=== PATIENT | female | born 1970 | race Caucasian/White ===

== ENCOUNTER 2018-01-30 04:26 | Emergency (ER) | payer OTHER ==
[2018-01-30 04:33] VITALS: RESP 18
[2018-01-30] MEDS ORDERED: ONDANSETRON 4 MG/2 ML VIAL IVP STA (04:45)
[2018-01-30] MEDS ORDERED: PANTOPRAZOLE 40 MG/10 ML VIAL IVP STA (04:45)
[2018-01-30] MEDS ORDERED: RX INFO: IV CONTRAST WAS GIVEN 1 EACH MISC MISCELLANE PRN (04:45)
[2018-01-30] MEDS ORDERED: MORPHINE SULFATE 4 MG/ML SYRINGE IV STA (04:45)
[2018-01-30] MEDS ORDERED: MORPHINE SULFATE 4MG/4ML SYRG IV STA (04:45)
[2018-01-30] MEDS ORDERED: SODIUM CHLORIDE 0.9% 1,000 ML IV STA ×3 (04:45→06:48)
[2018-01-30] MEDS ORDERED: MORPHINE SULFATE 4MG/4ML SYRG ONE (04:50)
[2018-01-30] MEDS ORDERED: MORPHINE SULFATE 4MG/4ML SYRG IVP STA (04:56)
--- NOTE | 2018-01-30 04:59 | ED ---
General Adult HPI - General Chief complaint: Abdominal Pain Stated complaint: Side Pain, Nausea Time Seen by Provider: 01/30/18 04:29 Source: patient, RN notes reviewed, old records reviewed Mode of arrival: ambulatory Limitations: no limitations - History of Present Illness Initial comments: This is a 39-year-old female the ER for evaluation of bowel pain, severe right- sided bowel pain. Patient awoke with symptoms prior to arrival. No history of similar symptoms. Patient has no significant medical history. Does not smoke or drink. No prior surgical history. Patient has severe right-sided pain right anterior abdomen and right flank and into the right back radiating down right flank. Patient states there is some blood in the urine no nausea vomiting no diarrhea. No recent fevers. No travel history or sick contacts. No modifying factors for pain - Related Data Home Medications Medication Instructions Recorded Confirmed HYDROcodone/APAP 7.5-325MG [[place] 1 tab PO DAILY PRN 01/30/18 01/30/18 7.5-325] Sertraline [Zoloft] 100 mg PO DAILY 01/30/18 01/30/18 hydrOXYzine PAMOATE [Vistaril] 25 mg PO DAILY PRN 01/30/18 01/30/18 Allergies Allergy/AdvReac Type Severity Reaction Status Date / Time No Known Allergies Allergy Verified 01/30/18 04:33 Review of Systems ROS Statement: Those systems with pertinent positive or pertinent negative responses have been documented in the HPI. ROS Other: All systems not noted in ROS Statement are negative. Past Medical History Past Medical History: No Reported History Additional Past Medical History / Comment(s): chronic back pain, neck pain. History of Any Multi-Drug Resistant Organisms: None Reported Past Surgical History: No Surgical Hx Reported Past Psychological History: Anxiety, Depression Smoking Status: Current every day smoker Past Alcohol Use History: None Reported Past Drug Use History: None Reported General Exam Limitations: no limitations General appearance: alert, in no apparent distress Head exam: Present: atraumatic, normocephalic, normal inspection Eye exam: Present: normal appearance, PERRL, EOMI. Absent: scleral icterus, conjunctival injection, periorbital swelling ENT exam: Present: normal exam, mucous membranes moist Neck exam: Present: normal inspection. Absent: tenderness, meningismus, lymphadenopathy Respiratory exam: Present: normal lung sounds bilaterally. Absent: respiratory distress, wheezes, rales, rhonchi, stridor Cardiovascular Exam: Present: regular rate, normal rhythm, normal heart sounds. Absent: systolic murmur, diastolic murmur, rubs, gallop, clicks GI/Abdominal exam: Present: soft, normal bowel sounds. Absent: distended, tenderness, guarding, rebound, rigid Extremities exam: Present: normal inspection, full ROM, normal capillary refill. Absent: tenderness, pedal edema, joint swelling, calf tenderness Back exam: Present: normal inspection Neurological exam: Present: alert, oriented X3, CN II-XII intact Psychiatric exam: Present: normal affect, normal mood Skin exam: Present: warm, dry, intact, normal color. Absent: rash Course Vital Signs 01/30/18 01/30/18 04:30 06:07 Temperature 98.6 F Pulse Rate 55 L 69 Respiratory 18 18 Rate Blood Pressure 127/74 131/83 O2 Sat by Pulse 96 98 Oximetry EKG Findings - EKG Comments: EKG Findings:: EKG shows normal sinus rhythm rate of 65, [place] 128, QRS 88, QTC 443 Medical Decision Making - Medical Decision Making 39 female the ER with severe right-sided flank pain. Positive kidney stone. No abdominal tenderness. Patient given pain control here feeling well, can be discharged home - Lab Data Result diagrams: 01/30/18 04:43 01/30/18 04:43 Lab Results 01/30/18 01/30/18 01/30/18 Range/Units 04:43 04:43 04:43 WBC 12.4 H (3.8-10.6) k/uL RBC 4.39 (3.80-5.40) m/uL Hgb 12.9 (11.4-16.0) gm/dL Hct 38.4 (34.0-46.0) % MCV 87.5 (80.0-100.0) fL MCH 29.3 (25.0-35.0) pg MCHC 33.5 (31.0-37.0) g/dL RDW 13.7 (11.5-15.5) % Plt Count 384 (150-450) k/uL Neutrophils % 65 % Lymphocytes % 25 % Monocytes % 6 % Eosinophils % 2 % Basophils % 0 % Neutrophils # 8.1 H (1.3-7.7) k/uL Lymphocytes # 3.2 (1.0-4.8) k/uL Monocytes # 0.7 (0-1.0) k/uL Eosinophils # 0.2 (0-0.7) k/uL Basophils # 0.0 (0-0.2) k/uL Sodium 141 (137-145) mmol/L Potassium 4.1 (3.5-5.1) mmol/L Chloride 102 (98-107) mmol/L Carbon Dioxide 29 (22-30) mmol/L Anion Gap 10 mmol/L BUN 15 (7-17) mg/dL Creatinine 0.70 (0.52-1.04) mg/dL Est GFR (CKD-EPI)AfAm >90 (>60 ml/min/1.73 sqM) Est GFR (CKD-EPI)NonAf >90 (>60 ml/min/1.73 sqM) Glucose 137 H (74-99) mg/dL Plasma Lactic Acid Hero (0.7-2.0) mmol/L Calcium 8.9 (8.4-10.2) mg/dL Total Bilirubin 0.2 (0.2-1.3) mg/dL AST 18 (14-36) U/L ALT 20 (9-52) U/L Alkaline Phosphatase 62 (38-126) U/L Total Creatine Kinase 32 (30-135) U/L CK-MB (CK-2) 0.3 (0.0-2.4) ng/mL CK-MB (CK-2) Rel Index 0.9 Troponin I <0.012 (0.000-0.034) ng/mL Total Protein 6.4 (6.3-8.2) g/dL Albumin 3.5 (3.5-5.0) g/dL Amylase 68 (30-110) U/L Lipase 92 (23-300) U/L Urine Color Urine Appearance (Clear) Urine pH (5.0-8.0) Ur Specific [place] (1.001-1.035) Urine Protein (Negative) Urine Glucose (UA) (Negative) Urine Ketones (Negative) Urine Blood (Negative) Urine Nitrite (Negative) Urine Bilirubin (Negative) Urine Urobilinogen (<2.0) mg/dL Ur Leukocyte Esterase (Negative) Urine RBC (0-5) /hpf Urine WBC (0-5) /hpf Ur Squamous Epith Cells (0-4) /hpf Urine Bacteria (None) /hpf Urine Mucus (None) /hpf 01/30/18 01/30/18 Range/Units 04:43 05:20 WBC (3.8-10.6) k/uL RBC (3.80-5.40) m/uL Hgb (11.4-16.0) gm/dL Hct (34.0-46.0) % MCV (80.0-100.0) fL MCH (25.0-35.0) pg MCHC (31.0-37.0) g/dL RDW (11.5-15.5) % Plt Count (150-450) k/uL Neutrophils % % Lymphocytes % % Monocytes % % Eosinophils % % Basophils % % Neutrophils # (1.3-7.7) k/uL Lymphocytes # (1.0-4.8) k/uL Monocytes # (0-1.0) k/uL Eosinophils # (0-0.7) k/uL Basophils # (0-0.2) k/uL Sodium (137-145) mmol/L Potassium (3.5-5.1) mmol/L Chloride (98-107) mmol/L Carbon Dioxide (22-30) mmol/L Anion Gap mmol/L BUN (7-17) mg/dL Creatinine (0.52-1.04) mg/dL Est GFR (CKD-EPI)AfAm (>60 ml/min/1.73 sqM) Est GFR (CKD-EPI)NonAf (>60 ml/min/1.73 sqM) Glucose (74-99) mg/dL Plasma Lactic Acid Hero 1.4 (0.7-2.0) mmol/L Calcium (8.4-10.2) mg/dL Total Bilirubin (0.2-1.3) mg/dL AST (14-36) U/L ALT (9-52) U/L Alkaline Phosphatase (38-126) U/L Total Creatine Kinase (30-135) U/L CK-MB (CK-2) (0.0-2.4) ng/mL CK-MB (CK-2) Rel Index Troponin I (0.000-0.034) ng/mL Total Protein (6.3-8.2) g/dL Albumin (3.5-5.0) g/dL Amylase (30-110) U/L Lipase (23-300) U/L Urine Color Yellow Urine Appearance Cloudy H (Clear) Urine pH 6.0 (5.0-8.0) Ur Specific [place] 1.013 (1.001-1.035) Urine Protein Trace H (Negative) Urine Glucose (UA) Negative (Negative) Urine Ketones Negative (Negative) Urine Blood Large H (Negative) Urine Nitrite Negative (Negative) Urine Bilirubin Negative (Negative) Urine Urobilinogen <2.0 (<2.0) mg/dL Ur Leukocyte Esterase Negative (Negative) Urine RBC >182 H (0-5) /hpf Urine WBC 3 (0-5) /hpf Ur Squamous Epith Cells 18 H (0-4) /hpf Urine Bacteria Rare H (None) /hpf Urine Mucus Few H (None) /hpf - Radiology Data Radiology results: report reviewed (CT abd pelvis positive for kidney stone), image reviewed Disposition Clinical Impression: Right kidney stone, Abdominal pain Disposition: HOME SELF-CARE Condition: Good Instructions: Kidney Stones (ED) Referrals: Benito Alexandre MD [Primary Care Provider] - 1-2 days
[2018-01-30 05:08] LABS: Basophils % (A) 0 %; Eosinophils # (A) 0.2 k/uL (0-0.7); Eosinophils % (A) 2 %; HCT 38.4 % (34.0-46.0); HGB 12.9 gm/dL (11.4-16.0); Lymphocytes # (A) 3.2 k/uL (1.0-4.8); Lymphocytes % (A) 25 %; MCH 29.3 pg (25.0-35.0); MCHC 33.5 g/dL (31.0-37.0); MCV 87.5 fL (80.0-100.0); Mean Platelet Volume 6.6; Monocytes # (A) 0.7 k/uL (0-1.0); Monocytes % (A) 6 %; Neutrophils # (A) 8.1 k/uL (1.3-7.7); Neutrophils % (A) 65 %; Platelet Count 384 k/uL (150-450); RBC 4.39 m/uL (3.80-5.40); RDW 13.7 % (11.5-15.5); WBC 12.4 k/uL (3.8-10.6)
[2018-01-30 05:35] LABS: Appearance,Urine Cloudy (Clear); Bacteria,Urine Rare /hpf; Bilirubin,Urine Negative (Negative); Blood,Urine Large (Negative); Color,Urine Yellow; Glucose,Urine (UA) Negative (Negative); Ketones,Urine Negative (Negative); Leukocyte Esterase,Urine Negative (Negative); Mucus,Urine Few /hpf; Nitrite,Urine Negative (Negative); Protein,Urine Trace (Negative); RBC,Urine >182 /hpf (0-5); Specific Gravity,Urine 1.013 (1.001-1.035); Squamous Epithelial Cell,Urine 18 /hpf (0-4); Urobilinogen,Urine <2.0 mg/dL (<2.0); WBC,Urine 3 /hpf (0-5)
[2018-01-30 05:39] LABS: ALT 20 U/L (9-52); AST 18 U/L (14-36); Albumin 3.5 g/dL (3.5-5.0); Alkaline Phosphatase 62 U/L (38-126); Amylase 68 U/L (30-110); Anion Gap 10 mmol/L; Blood Urea Nitrogen 15 mg/dL (7-17); Calcium 8.9 mg/dL (8.4-10.2); Carbon Dioxide 29 mmol/L (22-30); Chloride 102 mmol/L (98-107); Glucose 137 mg/dL (74-99); Lipase 92 U/L (23-300); Potassium 4.1 mmol/L (3.5-5.1); Sodium 141 mmol/L (137-145); Total Bilirubin 0.2 mg/dL (0.2-1.3); Total Protein 6.4 g/dL (6.3-8.2)
[2018-01-30 05:47] LABS: Creatine Kinase 32 U/L (30-135)
[2018-01-30] MEDS ORDERED: KETOROLAC 30 MG/ML 1 ML VIAL IVP STA (05:54)
[2018-01-30 06:00] LABS: Creatine Kinase MB 0.3 ng/mL (0.0-2.4); Troponin I <0.012 ng/mL (0.000-0.034)
--- NOTE | 2018-01-30 06:21 | CT ---
EXAM: CT Abdomen and Pelvis With Intravenous Contrast CLINICAL HISTORY: Reason: abdominal pain. Right lower flank pain. TECHNIQUE: Axial computed tomography images of the abdomen and pelvis with intravenous contrast. CTDI is 6.3 mGy and DLP is 303.5 mGy-cm. Axial delayed images: CTDI is 6.4 mGy and DLP is 141.7 mGy-cm. This CT exam was performed using one or more of the following dose reduction techniques: automated exposure control, adjustment of the mA and/or kV according to patient size, and/or use of iterative reconstruction technique. Coronal and sagittal reformatted images were created and reviewed. COMPARISON: No relevant prior studies available. FINDINGS: Lung bases: Unremarkable. No mass. No consolidation. ABDOMEN: Liver: Unremarkable. No mass. Gallbladder and bile ducts: Unremarkable. No calcified stones. No ductal dilation. Pancreas: Unremarkable. No mass. No ductal dilation. Spleen: Unremarkable. No splenomegaly. Adrenals: Unremarkable. No mass. Kidneys and ureters: Mild right hydroureteronephrosis with a 3.7 mm UVJ calculus. Additional bilateral intrarenal calculi are seen. No hydronephrosis seen on the left. Stomach and bowel: Unremarkable. No obstruction. No mucosal thickening. Appendix: No findings to suggest acute appendicitis. PELVIS: Bladder: Unremarkable. No mass. Reproductive: Left ovarian 2.7 cm cystic lesion. ABDOMEN and PELVIS: Intraperitoneal space: Trace amount of free fluid. No free air. Bones/joints: No acute fracture. No dislocation. Soft tissues: Unremarkable. Vasculature: Unremarkable. No abdominal aortic aneurysm. Lymph nodes: Unremarkable. No enlarged lymph nodes. IMPRESSION: 1. Mild right hydroureteronephrosis with a 3.7 mm UVJ calculus. 2. Additional bilateral intrarenal calculi are seen. No hydronephrosis seen on the left. 3. Left ovarian 2.7 cm cystic lesion. 4. Trace amount of free fluid.
[2018-01-30] MEDS ORDERED: SODIUM CHLORIDE 0.9% 500 ML IV STA (06:48)
[2018-01-30] MEDS ORDERED: TAMSULOSIN 0.4 MG CAP.ER.24H PO STA (06:48)
[2018-01-30 07:07] VITALS: BP 110/65; PULSE 71; TEMP 97.5
== END 2018-01-30 07:06 | disposition home or self-care (01) ==
LOC: EC 04:26
DX: N20.0 Calculus of kidney (principal); F32.9 Major depressive disorder, single episode, unspecified; F41.9 Anxiety disorder, unspecified; F17.200 Nicotine dependence, unspecified, uncomplicated; Z79.899 Other long term (current) drug therapy; Z53.8 Procedure and treatment not carried out for other reasons
CPT/HCPCS: 36415; 80053; 82150; 82550; 82553; 83605; 83690; 84484; 85025; 81001; 87086; 74177; 99285; 96374; 96375 ×3; 96361 ×2; J2405; J1885; C9113; Q9967; J2270

== ENCOUNTER → 2018-02-07 | Outpatient (CLI) | payer OTHER ==
--- NOTE | 2018-02-10 13:02 | MM ---
Reason for exam: screening (asymptomatic). Last mammogram was performed 5 years and 6 months ago. Physical Findings: A clinical breast exam by your physician is recommended on an annual basis and results should be correlated with mammographic findings. MG 3D Screening Mammo W/Cad Bilateral CC and MLO view(s) were taken. Prior study comparison: July 31, 2012, bilateral digital screening mammo w/CAD. October 08, 2008, bilateral digital screening mammogram. The breast tissue is heterogeneously dense. This may lower the sensitivity of mammography. Finding: There are typically benign round calcifications in both breasts. There is no discrete abnormality. ASSESSMENT: Benign, BI-RAD 2 RECOMMENDATION: Routine screening mammogram of both breasts in 1 year.
== END | disposition home or self-care (01) ==
LOC: RADMAMWWP 08:34
PROVIDERS: ATTEND Family Medicine
DX: Z12.31 Encounter for screening mammogram for malignant neoplasm of breast (principal)
CPT/HCPCS: 77063; 77067

== ENCOUNTER 2020-04-21 20:08 | Emergency (ER) | payer OTHER ==
[2020-04-21] MEDS ORDERED: DIPH,PERTUS(ACELL)TETVAC-LF 0.5 ML VIAL IM ONE (20:55)
[2020-04-21] MEDS ORDERED: CEPHALEXIN 500MG STARTER PACK 4 CAP BTL PO STA (20:55)
--- NOTE | 2020-04-21 21:26 | XR ---
EXAMINATION TYPE: XR ankle complete LT DATE OF EXAM: 04/21/2020 COMPARISON: NONE HISTORY: Possible foreign body. Pain. TECHNIQUE: 3 views FINDINGS: There is plantar calcaneal spurring. Ankle mortise is anatomic. There is some anterior vasc ular calcification. There is no evidence of a fracture. I see no evidence of radiopaque foreign body. IMPRESSION: No fracture. No foreign body seen.
--- NOTE | 2020-04-21 21:32 | ED ---
General Adult HPI - General Chief complaint: Extremity Injury, Lower Stated complaint: L leg sliver Time Seen by Provider: 04/21/20 20:40 Source: patient, RN notes reviewed Mode of arrival: ambulatory Limitations: no limitations - History of Present Illness Initial comments: 49-year-old female presents to the emergency department for a chief complaint of possible left leg sliver. Patient states that a few days ago she was mowing the lawn when a small piece of wood went in her left leg. Patient states she pulled most of it out but feels that there still may be a small piece in there. Patient states it has become more painful and red. Patient not up-to-date on tetanus. Patient states she tried to get this out has been soaking it but has been unable to do so.Patient has no other complaints at this time including shortness of breath, chest pain, abdominal pain, nausea or vomiting, headache, or visual changes. - Related Data Home Medications Medication Instructions Recorded Confirmed HYDROcodone/APAP 7.5-325MG [[place] 1 tab PO DAILY PRN 01/30/18 01/30/18 7.5-325] Sertraline [Zoloft] 100 mg PO DAILY 01/30/18 04/21/20 hydrOXYzine PAMOATE [Vistaril] 25 mg PO DAILY PRN 01/30/18 04/21/20 Previous Rx's Medication Instructions Recorded HYDROcodone/APAP 5-325MG [[place] 1 tab PO Q6HR PRN #20 tab 01/30/18 5-325] Naproxen [Naprosyn] 500 mg PO Q12HR PRN #30 tab 01/30/18 Ondansetron Odt [Zofran ODT] 4 mg PO Q8HR PRN #20 tab 01/30/18 Cephalexin [Keflex] 500 mg PO Q6H 10 Days #40 cap 04/21/20 Allergies Allergy/AdvReac Type Severity Reaction Status Date / Time No Known Allergies Allergy Verified 04/21/20 20:43 Review of Systems ROS Statement: Those systems with pertinent positive or pertinent negative responses have been documented in the HPI. ROS Other: All systems not noted in ROS Statement are negative. Past Medical History Past Medical History: No Reported History Additional Past Medical History / Comment(s): chronic back pain, neck pain. History of Any Multi-Drug Resistant Organisms: None Reported Past Surgical History: No Surgical Hx Reported Past Psychological History: Anxiety, Depression Smoking Status: Current every day smoker Past Alcohol Use History: None Reported Past Drug Use History: None Reported General Exam Limitations: no limitations General appearance: alert, in no apparent distress Head exam: Present: atraumatic, normocephalic, normal inspection Eye exam: Present: normal appearance, PERRL, EOMI. Absent: scleral icterus, conjunctival injection, periorbital swelling ENT exam: Present: normal exam, mucous membranes moist Neck exam: Present: normal inspection, full ROM. Absent: tenderness, meningismus, lymphadenopathy Respiratory exam: Present: normal lung sounds bilaterally. Absent: respiratory distress, wheezes, rales, rhonchi, stridor Cardiovascular Exam: Present: regular rate, normal rhythm, normal heart sounds. Absent: systolic murmur, diastolic murmur, rubs, gallop, clicks GI/Abdominal exam: Present: soft, normal bowel sounds. Absent: distended, tenderness, guarding, rebound, rigid Extremities exam: Present: full ROM (Full range of motion of the left ankle.), normal capillary refill (Capillary refill less than 2 seconds in the lower extremity.), other (I patient does have some erythema over the anterior aspect o f the left ankle about 3 cm by 3 cm where there is a small laceration with purulent drainage. I do not see any evidence of foreign body at this time.). Absent: tenderness, pedal edema, joint swelling, calf tenderness Course Vital Signs 04/21/20 04/21/20 20:45 21:26 Temperature 98.8 F Pulse Rate 63 67 Respiratory 16 19 Rate Blood Pressure 139/66 119/87 O2 Sat by Pulse 97 98 Oximetry Medical Decision Making - Medical Decision Making X-ray of the left ankle shows no fracture or nor foreign bodies seen. Patient will be treated Keflex as there does appear to be cellulitis surrounding the area. She will follow-up with orthopedics given there could be possible retained foreign body however I do not see this on my exam. Patient will return here for any worsening symptoms. Disposition Clinical Impression: Cellulitis Narrative: Possible soft tissue foreign body Disposition: HOME SELF-CARE Condition: Good Instructions (If sedation given, give patient instructions): Cellulitis (ED), Soft Tissue Foreign Body (ED) Additional Instructions: Please take antibiotic as directed. Please follow-up with orthopedics in one to 2 days. Return to the emergency room for any worsening symptoms or fevers. Prescriptions: Cephalexin [Keflex] 500 mg PO Q6H 10 Days #40 cap Is patient prescribed a controlled substance at d/c from ED?: No Referrals: Faizan Garcia DO [Medical Doctor] - 1-2 days Malaika Johnson PAC [REFERRING] - 1-2 days Time of Disposition: 21:30
[2020-04-21 22:28] VITALS: BP 132/74; PULSE 71; RESP 15; TEMP 98.6
== END 2020-04-21 22:24 | disposition home or self-care (01) ==
LOC: EC 20:08
DX: L03.116 Cellulitis of left lower limb (principal); F32.9 Major depressive disorder, single episode, unspecified; F41.9 Anxiety disorder, unspecified; F17.200 Nicotine dependence, unspecified, uncomplicated; Z79.899 Other long term (current) drug therapy; W45.8XXA Other foreign body or object entering through skin, initial encounter; Y93.H2 Activity, gardening and landscaping; Z23 Encounter for immunization
CPT/HCPCS: 90471; 90715; 99283

== ENCOUNTER 2021-11-17 19:46 | Emergency (ER) | payer OTHER ==
[2021-11-17 19:53] VITALS: BP 116/60; PULSE 74; RESP 20; TEMP 98.4
--- NOTE | 2021-11-17 20:09 | ED ---
Female Urogenital HPI - General Chief complaint: Urogenital Stated complaint: Blood in urine Time Seen by Provider: 11/17/21 19:55 Source: patient, RN notes reviewed, old records reviewed Mode of arrival: ambulatory Limitations: no limitations - History of Present Illness Initial comments: This is a pleasant 50-year-old female who has had hematuria occurring in the morning for the past 3 days. Patient also describing some mild suprapubic di [place]om[place]. However she states she has no pain. She denies flank pain or back pain. No fever or chills. Patient does have a history of kidney stones. Seen urology, Dr. Leggett in the past. Patient states she feels well otherwise. No headache, no fever or chills, no changes in vision or hearing, no sore throat or difficulty with speech, no neck pain, no chest pain or shortness of breath, no abdominal pain, no nausea or vomiting, no changes bowel movements, no numbness or tingling, no extremity pain, no skin rashes or lesions. - Related Data Home Medications Medication Instructions Recorded Confirmed HYDROcodone/APAP 7.5-325MG [[place] 1 tab PO DAILY PRN 01/30/18 01/30/18 7.5-325] Sertraline [Zoloft] 100 mg PO DAILY 01/30/18 04/21/20 hydrOXYzine pamoate [Vistaril] 25 mg PO DAILY PRN 01/30/18 04/21/20 Previous Rx's Medication Instructions Recorded HYDROcodone/APAP 5-325MG [[place] 1 tab PO Q6HR PRN #20 tab 01/30/18 5-325] Naproxen [Naprosyn] 500 mg PO Q12HR PRN #30 tab 01/30/18 Ondansetron Odt [Zofran ODT] 4 mg PO Q8HR PRN #20 tab 01/30/18 Cephalexin [Keflex] 500 mg PO Q6H 10 Days #40 cap 04/21/20 Cefdinir 300 mg PO Q12HR #14 cap 11/17/21 Allergies Allergy/AdvReac Type Severity Reaction Status Date / Time No Known Allergies Allergy Verified 11/17/21 19:50 Review of Systems ROS Statement: Those systems with pertinent positive or pertinent negative responses have been documented in the HPI. ROS Other: All systems not noted in ROS Statement are negative. Past Medical History Past Medical History: No Reported History Additional Past Medical History / Comment(s): chronic back pain, neck pain. kidney stones History of Any Multi-Drug Resistant Organisms: None Reported Past Surgical History: No Surgical Hx Reported Past Psychological History: Anxiety, Depression Smoking Status: Current every day smoker Past Alcohol Use History: None Reported Past Drug Use History: None Reported General Exam - General Exam Comments Initial Comments: Nontoxic-appearing female in no acute distress. Vital signs noted Limitations: no limitations General appearance: alert, in no apparent distress Head exam: Present: atraumatic, normocephalic, normal inspection Eye exam: Present: normal appearance, PERRL, EOMI. Absent: scleral icterus, conjunctival injection, periorbital swelling ENT exam: Present: normal exam, mucous membranes moist Neck exam: Present: normal inspection. Absent: tenderness, meningismus, lymphadenopathy Respiratory exam: Present: normal lung sounds bilaterally. Absent: respiratory distress, wheezes, rales, rhonchi, stridor Cardiovascular Exam: Present: regular rate, normal rhythm, normal heart sounds. Absent: systolic murmur, diastolic murmur, rubs, gallop, clicks GI/Abdominal exam: Present: soft, normal bowel sounds. Absent: distended, tenderness, guarding, rebound, rigid Extremities exam: Present: normal inspection, full ROM, normal capillary refill. Absent: tenderness, pedal edema, joint swelling, calf tenderness Back exam: Present: normal inspection Neurological exam: Present: alert, oriented X3, CN II-XII intact Psychiatric exam: Present: normal affect, normal mood Skin exam: Present: warm, dry, intact, normal color. Absent: rash Course Vital Signs 11/17/21 19:50 Temperature 98.4 F Pulse Rate 74 Respiratory 20 Rate Blood Pressure 116/60 O2 Sat by Pulse 98 Oximetry - Reevaluation(s) Reevaluation #1: 11/17/21 21:34 Patient reevaluated is resting comfortably in the room. No distress. shows evidence of acute cystitis. We will treat with antibiotics. Medical Decision Making - Medical Decision Making This is a pleasant 50-year-old female who presents emergency Department with hematuria for last 3 days. States that she went to her urologist office this morning got an order for a KUB which she had done. She states it seemed to get a bit worse throughout the day. She had more gross blood and has a mild pressure to the suprapubic area. Feels well otherwise. Differential includes infectious process, interstitial cystitis, bleeding from some other source of the urological tract, malignancy is within the differential as well. Gen. labs, renal, ureter, bladder ultrasound ordered. Patient's outpatient KUB shows bilateral nephrolithiasis with multiple calculi. EKG done at 20 4200 by the ED attending physician reveals normal sinus rhythm with a rate of 81. Normal intervals. Nonspecific ST abnormality which is likely due to artifact seen in lead V4. When compared to the previous study from 10/13/2021 there is no significant change. - Lab Data Result diagrams: 11/17/21 20:20 11/17/21 20:20 Lab Results 11/17/21 11/17/21 11/17/21 Range/Units 20:20 20:20 20:20 WBC 8.0 (3.8-10.6) k/uL RBC 4.24 (3.80-5.40) m/uL Hgb 13.0 (11.4-16.0) gm/dL Hct 40.2 (34.0-46.0) % MCV 94.8 (80.0-100.0) fL MCH 30.8 (25.0-35.0) pg MCHC 32.4 (31.0-37.0) g/dL RDW 13.6 (11.5-15.5) % Plt Count 269 (150-450) k/uL MPV 6.8 Neutrophils % 61 % Lymphocytes % 28 % Monocytes % 6 % Eosinophils % 3 % Basophils % 0 % Neutrophils # 4.9 (1.3-7.7) k/uL Lymphocytes # 2.3 (1.0-4.8) k/uL Monocytes # 0.5 (0-1.0) k/uL Eosinophils # 0.2 (0-0.7) k/uL Basophils # 0.0 (0-0.2) k/uL Sodium 140 (137-145) mmol/L Potassium 4.0 (3.5-5.1) mmol/L Chloride 105 (98-107) mmol/L Carbon Dioxide 28 (22-30) mmol/L Anion Gap 7 mmol/L BUN 16 (7-17) mg/dL Creatinine 0.74 (0.52-1.04) mg/dL Est GFR (CKD-EPI)AfAm >90 (>60 ml/min/1.73 sqM) Est GFR (CKD-EPI)NonAf >90 (>60 ml/min/1.73 sqM) Glucose 106 H (74-99) mg/dL Calcium 9.7 (8.4-10.2) mg/dL Total Bilirubin 0.4 (0.2-1.3) mg/dL AST 24 (14-36) U/L ALT 16 (4-34) U/L Alkaline Phosphatase 49 (38-126) U/L Total Protein 6.7 (6.3-8.2) g/dL Albumin 4.0 (3.5-5.0) g/dL Urine Color Light Red Urine Appearance Turbid H (Clear) Urine pH 5.5 (5.0-8.0) Ur Specific [place] 1.021 (1.001-1.035) Urine Protein 1+ H (Negative) Urine Glucose (UA) Negative (Negative) Urine Ketones Trace H (Negative) Urine Blood Large H (Negative) Urine Nitrite Negative (Negative) Urine Bilirubin Negative (Negative) Urine Urobilinogen 2.0 (<2.0) mg/dL Ur Leukocyte Esterase Small H (Negative) Urine RBC >182 H (0-5) /hpf Urine WBC 65 H (0-5) /hpf Ur Squamous Epith Cells 3 (0-4) /hpf Calcium Oxalate Crystal Moderate H (None) /hpf Urine Bacteria Occasional H (None) /hpf Urine Mucus Many H (None) /hpf Disposition Clinical Impression: Acute hemorrhagic cystitis Disposition: HOME SELF-CARE Condition: Good Instructions (If sedation given, give patient instructions): Urinary Tract Infection in Women (ED) Additional Instructions: Follow-up with the urologist on Saturday morning without fail. Follow-up with your regular physician as directed. Return to the ER immediately if any symptoms worsen, new symptoms arise, or any other problems develop. Prescriptions: Cefdinir 300 mg PO Q12HR #14 cap Is patient prescribed a controlled substance at d/c from ED?: No Referrals: Dayo Alexandre MD [REFERRING] - 1-2 days
[2021-11-17 20:33] LABS: Basophils % (A) 0 %; Eosinophils # (A) 0.2 k/uL (0-0.7); Eosinophils % (A) 3 %; HCT 40.2 % (34.0-46.0); Lymphocytes # (A) 2.3 k/uL (1.0-4.8); Lymphocytes % (A) 28 %; MCH 30.8 pg (25.0-35.0); MCHC 32.4 g/dL (31.0-37.0); MCV 94.8 fL (80.0-100.0); Mean Platelet Volume 6.8; Monocytes # (A) 0.5 k/uL (0-1.0); Monocytes % (A) 6 %; Neutrophils # (A) 4.9 k/uL (1.3-7.7); Neutrophils % (A) 61 %; Platelet Count 269 k/uL (150-450); RBC 4.24 m/uL (3.80-5.40); RDW 13.6 % (11.5-15.5)
[2021-11-17 20:43] LABS: ALT 16 U/L (4-34); AST 24 U/L (14-36); African American GFR (CKD) >90 (>60 ml/min/1.73 sqM); Alkaline Phosphatase 49 U/L (38-126); Anion Gap 7 mmol/L; Blood Urea Nitrogen 16 mg/dL (7-17); Calcium 9.7 mg/dL (8.4-10.2); Carbon Dioxide 28 mmol/L (22-30); Chloride 105 mmol/L (98-107); Glucose 106 mg/dL (74-99); Non-African American GFR(CKD) >90 (>60 ml/min/1.73 sqM); Sodium 140 mmol/L (137-145); Total Bilirubin 0.4 mg/dL (0.2-1.3); Total Protein 6.7 g/dL (6.3-8.2)
[2021-11-17 20:55] LABS: Appearance,Urine Turbid (Clear); Bacteria,Urine Occasional /hpf; Bilirubin,Urine Negative (Negative); Blood,Urine Large (Negative); Calcium Oxalate Crystals,Urine Moderate /hpf; Color,Urine Light Red; Glucose,Urine (UA) Negative (Negative); Ketones,Urine Trace (Negative); Leukocyte Esterase,Urine Small (Negative); Mucus,Urine Many /hpf; Nitrite,Urine Negative (Negative); PH, Urine 5.5 (5.0-8.0); Protein,Urine 1+ (Negative); RBC,Urine >182 /hpf (0-5); Specific Gravity,Urine 1.021 (1.001-1.035); Squamous Epithelial Cell,Urine 3 /hpf (0-4); WBC,Urine 65 /hpf (0-5)
--- NOTE | 2021-11-17 20:58 | US ---
EXAMINATION TYPE: US kidneys/renal and bladder DATE OF EXAM: 11/17/2021 COMPARISON: KUB, CT CLINICAL HISTORY: Hematuria. Pt states gross hematuria, known kidney stones EXAM MEASUREMENTS: Right Kidney: 10.2 x 3.9 x 4.9 cm Left Kidney: 12.0 x 5.7 x 5.0 cm Right Kidney: No evidence of hydro, multiple calculi lower pole= 0.4 cm largest size Left Kidney: No evidence of hydro, multiple calculi scattered throughout kidney larger in size when c ompared to right- largest= 1.0 cm in size Bladder: Unable to visualize, pt voided just prior to exam There is no evidence for hydronephrosis at this point in time. No nephrolithiasis is seen. No flakito s are identified. The urinary bladder is anechoic. Bilateral ureteral jets are seen. IMPRESSION: There are numerous bilateral nonobstructing renal calculi. Bladder was empty during the exam.
[2021-11-17] MEDS ORDERED: cefTRIAXone IN SWFI 1,000 MG/10 ML SYRINGE IVP STA (21:28)
== END 2021-11-17 22:03 | disposition home or self-care (01) ==
LOC: EC 19:46
DX: N30.01 Acute cystitis with hematuria (principal); F41.9 Anxiety disorder, unspecified; F32.A Depression, unspecified; F17.200 Nicotine dependence, unspecified, uncomplicated
CPT/HCPCS: 36415; 80053; 85025; 81001; 87086; 76770; 99284; 96374; J0696

== ENCOUNTER → 2021-11-17 | Outpatient (CLI) | payer OTHER ==
--- NOTE | 2021-11-17 10:33 | XR ---
EXAMINATION TYPE: XR KUB DATE OF EXAM: 11/17/2021 10:24 AM CLINICAL HISTORY: Bilateral kidney stones TECHNIQUE: Two supine KUB images of the abdomen are obtained. COMPARISON: CT abdomen and pelvis 2017 FINDINGS: Multiple bilateral renal calculi redemonstrated approximately 20 scattered calculi througho ut the left kidney and to a scattered calculi throughout the right kidney with larger calculi identif ied on the left up to 9 mm in size. Single right sided tiny calcified pelvic phlebolith redemonstrate d. Overall nonobstructive bowel gas pattern. Visualized lung bases are clear. Visualized osseous structu res are intact. IMPRESSION: Bilateral nephrolithiasis redemonstrated.
== END | disposition home or self-care (01) ==
LOC: RADXRMAIN 10:06
PROVIDERS: ATTEND Urology
DX: N20.0 Calculus of kidney (principal)
CPT/HCPCS: 74018

== ENCOUNTER → 2021-11-27 | Outpatient (CLI) | payer OTHER ==
[2021-11-27 11:42] LABS: Appearance,Urine Clear (Clear); Bacteria,Urine Occasional /hpf; Bilirubin,Urine Negative (Negative); Blood,Urine Moderate (Negative); Color,Urine Yellow; Glucose,Urine (UA) Negative (Negative); Ketones,Urine Negative (Negative); Leukocyte Esterase,Urine Trace (Negative); Mucus,Urine Few /hpf; Nitrite,Urine Negative (Negative); Protein,Urine Trace (Negative); RBC,Urine 82 /hpf (0-5); Specific Gravity,Urine 1.014 (1.001-1.035); Squamous Epithelial Cell,Urine 5 /hpf (0-4); Urobilinogen,Urine <2.0 mg/dL (<2.0); WBC,Urine 4 /hpf (0-5)
[2021-11-27 14:44] LABS: Basophils # (A) 0.03 X 10*3/uL (0.00-0.10); Basophils % (A) 0.6 %; Eosinophils # (A) 0.14 X 10*3/uL (0.04-0.35); Eosinophils % (A) 2.9 %; HCT 41.1 % (37.2-46.3); HGB 13.3 g/dL (12.0-15.0); Lymphocytes # (A) 1.58 X 10*3/uL (0.90-5.00); Lymphocytes % (A) 32.8 %; MCH 30.1 pg (27.0-32.0); MCHC 32.4 g/dL (32.0-37.0); Mean Platelet Volume 9.3 fL (9.5-12.2); Monocytes # (A) 0.67 X 10*3/uL (0.20-1.00); Monocytes % (A) 13.9 %; Neutrophils # (A) 2.38 X 10*3/uL (1.80-7.70); Neutrophils % (A) 49.4 %; Platelet Count 309 X 10*3/uL (140-440); RBC 4.42 X 10*6/uL (4.10-5.20); RDW 13.5 % (11.5-14.5); WBC 4.82 X 10*3/uL (4.50-10.00)
[2021-11-27 14:56] LABS: African American GFR (CKD) 116.4 (60.0-200.0); Albumin 4.3 g/dL (3.8-4.9); Albumin/Globulin Ratio 1.71 (1.60-3.17); Anion Gap 9.8 mmol/L (10.00-18.00); BUN/Creat Ratio 20.35 Ratio (12.00-20.00); Blood Urea Nitrogen 13.9 mg/dL (9.0-27.0); Calcium 9.6 mg/dL (8.7-10.3); Carbon Dioxide 26.4 mmol/L (20.0-27.5); Globulin 2.5 g/dL (1.6-3.3); Non-African American GFR(CKD) 100.4 (60.0-200.0); Potassium 4.6 mmol/L (3.5-5.5); Total Bilirubin 0.3 mg/dL (0.30-1.20); Total Protein 6.8 g/dL (6.2-8.2)
== END | disposition home or self-care (01) ==
LOC: LABPAT 09:50
PROVIDERS: ATTEND Urology
DX: Z01.812 Encounter for preprocedural laboratory examination (principal); N20.1 Calculus of ureter; R31.9 Hematuria, unspecified
CPT/HCPCS: 80053; 81001; 85025; 87086

== ENCOUNTER 2021-12-06 06:10 | Day surgery (SDC) | payer OTHER ==
[2021-12-04 11:20] VITALS: BMI 19.4
--- NOTE | 2021-12-05 18:52 | P.GSHP ---
History of Present Illness H&P Date: 12/05/21 51 yo female with a history of stones. SH has had hematuria recently.. A kub identified multiple small stones but also an 8 mm upj stone we discussed treatment options and she comes for left ureteroscopy with laser lithotripsy and stent placement. the risks have been discussed - Constitutional Constitutional: Denies chills, Denies fever - EENT Eyes: denies blurred vision, denies pain Ears, nose, mouth and throat: Denies headache, Denies sore throat - Cardiovascular Cardiovascular: Denies chest pain, Denies shortness of breath - Respiratory Respiratory: Denies cough, Denies 7 - Gastrointestinal Gastrointestinal: Denies abdominal pain, Denies diarrhea, Denies nausea, Denies vomiting - Genitourinary (Female) Genitourinary: Denies dysuria, Denies hematuria - Genitourinary (Male) Genitourinary: Denies dysuria, Denies hematuria - Musculoskeletal Musculoskeletal: Denies myalgias - Integumentary Integumentary: Denies pruritus, Denies rash - Neurological Neurological: Denies numbness, Denies weakness - Psychiatric Psychiatric: Denies anxiety, Denies depression - Endocrine Endocrine: Denies fatigue, Denies weight change Past Medical History Past Medical History: No Reported History Additional Past Medical History / Comment(s): dinh kidney stones, chronic back pain, neck pain w/ dizziness at times,steroid injection to back Sep 2021/Oct 2021 History of Any Multi-Drug Resistant Organisms: None Reported Past Surgical History: No Surgical Hx Reported Additional Past Surgical History / Comment(s): pain procedures Past Anesthesia/Blood Transfusion Reactions: No Reported Reaction Smoking Status: Current every day smoker - Past Family History Mother Family Medical History: No Reported History Medications and Allergies Home Medications Medication Instructions Recorded Confirmed Type hydrOXYzine pamoate [Vistaril] 25 mg PO DAILY PRN 01/30/18 12/04/21 History Baclofen [Lioresal] 10 mg PO BID PRN 12/04/21 12/04/21 History Nicotine 7Mg/24Hr Patch [Habitrol] 1 patch TRANSDERM DAILY 12/04/21 12/04/21 History Allergies Allergy/AdvReac Type Severity Reaction Status Date / Time No Known Allergies Allergy Verified 12/04/21 11:13 Surgical - Exam - General well developed, well nourished, no distress - Eyes normal ocular movement, no icteric - ENT no hearing loss, no congestion - Neck no masses, trachea midline - Respiratory normal respiratory effort, clear to auscultation - Abdomen Abdomen: soft, non tender, no guarding, no rigid, no rebound - Integumentary no rash, no abnormal pigmentation - Neurologic no disoriented, no combative - Psychiatric oriented to time, oriented to person, oriented to place, speech is normal, memory intact Results - Imaging Abdominal x-ray: report reviewed, image reviewed Assessment and Plan Assessment: Impression: left renal stones Plzn: left ureteroscopy with laser lithotripsy and possible stent placement
[~2021-12-06 06:10] MED LIST: DEXAMETHASONE SOD PHOSPHATE 4 MG/ML 1 ML VIAL IV ONE; LACTATED RINGERS 1,000 ML IV SCH; LIDOCAINE 1% (10MG/ML) FOR IV START INTRADERMA PRN; MIDAZOLAM 2 MG/2 ML VIAL IV PRN; ONDANSETRON 4 MG/2 ML VIAL IVP ONE
--- NOTE | 2021-12-06 06:30 | XR ---
EXAMINATION TYPE: XR KUB DATE OF EXAM: 12/06/2021 COMPARISON: 11/17/2021 HISTORY: Abdominal pain. Kidney stones. TECHNIQUE: Single view FINDINGS: There are numerous bilateral calculi over the kidneys. These measure up to 9 mm. Detail nayak ited by fecal material. There is no evidence of intestinal obstruction or pneumoperitoneum. Lung base s are clear. There is no evidence of a mass. IMPRESSION: Numerous bilateral renal calculi without change compared to the old exam.
[2021-12-06] MEDS ORDERED: LACTATED RINGERS 1,000 ML IV ONE ×2 (06:46→08:46)
[2021-12-06] MEDS ORDERED: HYDROmorphone 0.5 MG/0.5 ML SYRINGE IVP PRN (07:00)
[2021-12-06] MEDS ORDERED: SUCCINYLCHOLINE CHLORIDE 100 MG/5 ML SYR IV ONE (07:20)
[2021-12-06] MEDS ORDERED: PHENYLEPHRINE-0.9% NACL SYG 1,000 MCG/10 ML SYRINGE ONE (07:20)
[2021-12-06] MEDS ORDERED: fentaNYL (PF) 50 MCG/ML 2 ML AMP ONE (07:20)
[2021-12-06] MEDS ORDERED: PROPOFOL 10 MG/ML 20 ML VIAL IV ONE (07:20)
[2021-12-06] MEDS ORDERED: LIDOCAINE 1% INJ 10MG/ML (20 ML MDV) ONE (07:20)
[2021-12-06 08:57] VITALS: TEMP 96.8
--- NOTE | 2021-12-06 08:57 | FL ---
Fluoroscopy History: LEFT URETERAL STONE lt kid stone lithotripsy/stent placement. 47 sec fl time. 2 pics on syn
--- NOTE | 2021-12-06 08:59 | P.OP ---
Date of Procedure: 12/06/21 Preoperative Diagnosis: Left renal stones with obstruction Postoperative Diagnosis: Same Procedure(s) Performed: Left ureteroscopy with laser lithotripsy, 6 x 24 stent Anesthesia: MARYELLEN Surgeon: Juan Jose Leggett Estimated Blood Loss (ml): 0 Pathology: none sent Condition: stable Disposition: PACU Indications for Procedure: Patient is 51. She was diagnosed with stones with hematuria. She has a UPJ stone as well as calyceal stones. Because of the UPJ stone and some hydronephrosis I recommended shockwave lithotripsy or ureteroscopy. She's chosen ureteroscopy. Description of Procedure: Patient brought operating suite. She is given a general endotracheal anesthesia. She's placed lithotomy position with sterile prep and drape. Cystoscopy Foroblique lens and 22-Filipino sheath identifies a normal urethra and normal bladder wall. The left ureteral orifice is intubated with an 035 wire that's passed up into the kidney. Over the wires passed an 56-42-Bihtru reentry sheath with the inner sheath been removed. Through the ureteral sheath the left ureter is intubated with a flexible ureteroscope up into the kidney. UPJ stone falls back in the lower pole calyx. 270 probe I break the lower pole calyceal stones in the tiny fragments. I then look into each calyx throughout the collecting system. Edison's plaques that are identified are broken with laser lithotripsy. Any other small stones are also broken. There are no other remaining stones. Based on fluoroscopy and endoscopy there appeared to be renal tubular stones also. There are no further stones to be broken and therefore I removed the ureteroscope. I passed an 035 wire up into the kidney. I removed the ureteral sheath and over the wires passed a 6 x 24 double-J catheter that coils in the left renal pelvis and the bladder. The bladder is drained and the patient is awakened and returned recovery room in good condition. She'll be discharged home upon recovery. She'll follow in the office in one week where the stent will be removed and then she'll pass and.
[2021-12-06] MEDS ORDERED: HYDROcodone/APAP 5-325MG 1 EACH TAB ONE (09:43)
[2021-12-06] MEDS ORDERED: HYDROcodone/APAP 5-325MG 1 EACH TAB PO ONE (09:49)
[2021-12-06 10:14] VITALS: BP 115/58; PULSE 57; RESP 16
== END 2021-12-06 10:39 | disposition home or self-care (01) ==
LOC: OR 06:10
PROVIDERS: ATTEND Urology
DX: N20.1 Calculus of ureter (principal)
CPT/HCPCS: 50980; 81025; 74018; C1769; J2250; J1100; J0690; J2405; J2001; J3010; J2370; J0330; J2704

== ENCOUNTER → 2022-01-02 | Outpatient (CLI) | payer OTHER ==
--- NOTE | 2022-01-02 12:17 | XR ---
EXAMINATION TYPE: XR KUB DATE OF EXAM: 01/02/2022 Comparison: 12/06/2021 Clinical History: 51-year-old female N20.0. Postop November 2021. Findings: Redemonstrated bilateral nephrolithiasis, relatively similar overall appearance of the right leg calc vitor measuring up to 4 mm. Calculi on the left appear more numerous measuring up to 7 mm but assessmen t is limited due to partial obscuration by bowel content. It appears that the previous largest 1.2 cm left renal calculus has resolved. Nonobstructive bowel gas pattern. No significant stool burden. Impression: Redemonstrated bilateral nephrolithiasis, left greater than right measuring up to 7 mm on the left an d 4 mm on the right. The previous 1.2 cm left-sided stone seen on 12/06/2021 is no longer appreciated.
== END | disposition home or self-care (01) ==
LOC: RADXRMAIN 09:54
PROVIDERS: ATTEND Urology
DX: N20.0 Calculus of kidney (principal)
CPT/HCPCS: 74018

== ENCOUNTER → 2022-01-18 | Outpatient (CLI) | payer OTHER | END | disposition home or self-care (01) | LOC: LABWHC1 08:25 | PROVIDERS: ATTEND Urology | DX: N20.0 Calculus of kidney (principal) | CPT/HCPCS: 36415 ==

== ENCOUNTER → 2022-02-08 | Outpatient (CLI) | payer OTHER ==
--- NOTE | 2022-02-08 14:19 | MM ---
Reason for exam: additional evaluation requested from abnormal screening. Last mammogram was performed less than 1 month ago. Physical Findings: A clinical breast exam by your physician is recommended on an annual basis and results should be correlated with mammographic findings. MG 3D Work Up W/Cad LT Spot compression CC and LM view(s) were taken of the left breast. Prior study comparison: January 31, 2022, bilateral MG screening mammo w CAD. February 07, 2018, bilateral MG 3d screening mammo w/cad. The breast tissue is heterogeneously dense. This may lower the sensitivity of mammography. Medial asymmetric density disperses on additional views. No significant new findings when compared with previous films. Results were given to the patient verbally at the time of the exam. ASSESSMENT: Benign, BI-RAD 2 RECOMMENDATION: Return to routine screening mammogram schedule for both breasts.
== END | disposition home or self-care (01) ==
LOC: RADMAMWWP 13:29
PROVIDERS: ATTEND Obstetrics & Gynecology
DX: R92.8 Other abnormal and inconclusive findings on diagnostic imaging of breast (principal)
CPT/HCPCS: 77065; G0279; 77061

== ENCOUNTER 2022-03-30 11:53 | Day surgery (SDC) | payer OTHER ==
[~2022-03-30 11:53] MED LIST changes: -DEXAMETHASONE SOD PHOSPHATE 4 MG/ML 1 ML VIAL IV ONE; -LIDOCAINE 1% (10MG/ML) FOR IV START INTRADERMA PRN; -MIDAZOLAM 2 MG/2 ML VIAL IV PRN; -ONDANSETRON 4 MG/2 ML VIAL IVP ONE
[2022-03-30 12:26] VITALS: TEMP 97
[2022-03-30] MEDS ORDERED: LIDOCAINE 2% INJ 20 MG/ML (2 ML VIAL) ONE (12:36)
[2022-03-30] MEDS ORDERED: PROPOFOL 10 MG/ML 20 ML VIAL IV ONE (12:36)
--- NOTE | 2022-03-30 13:03 | P.OP ---
Date of Procedure: 03/30/22 Preoperative Diagnosis: Screning Postoperative Diagnosis: Normal colon Anesthesia: MAC Surgeon: Marlon Haley Estimated Blood Loss (ml): 0 Condition: stable Description of Procedure: Patient is brought to the Endo suite placed left lateral position underwent sedation per department anesthesia timeout performed correct patient correct procedure correct site was verified rectal exam was performed no gross abnormalities were noted scope was passed from the rectum to the cecum was easily was slowly withdrawn make sure to visualize all denny of the colon on the way out there is no gross abnormalities noted. Scope was retroflexed in the rectum no gross abnormalities are noted. Scope was removed patient tolerated procedure well and will need a repeat colonoscopy in 10 years.
[2022-03-30 13:08] VITALS: BP 119/58; PULSE 59; RESP 20
--- NOTE | 2022-04-03 17:06 | P.GSHP ---
History of Present Illness H&P Date: 03/30/22 See paper H and P that is scaned in Past Medical History Past Medical History: Musculoskeletal Disorder, Osteoarthritis (OA) Additional Past Medical History / Comment(s): DDD, herniated discs with chronic back & neck pain. , kidney stones., hx IBS. History of Any Multi-Drug Resistant Organisms: None Reported Past Surgical History: No Surgical Hx Reported Additional Past Surgical History / Comment(s): Cystoscopy with stone removal. Past Anesthesia/Blood Transfusion Reactions: No Reported Reaction Past Psychological History: Anxiety, Depression Smoking Status: Current every day smoker Past Alcohol Use History: None Reported Additional Past Alcohol Use History / Comment(s): smokes up to 1ppd, started smoking since ', smoked off and on Past Drug Use History: None Reported - Past Family History Mother Family Medical History: Hypertension Additional Family Medical History / Comment(s): Maternal grandfather had colon cancer. Father Family Medical History: Unable to Obtain Additional Family Medical History / Comment(s): patient adopted. Medications and Allergies Home Medications Medication Instructions Recorded Confirmed Type hydrOXYzine pamoate [Vistaril] 25 mg PO DAILY PRN 01/30/18 03/30/22 History Calcium Carbonate [Calcium] 600 mg PO DAILY 03/29/22 03/30/22 History Ibuprofen [Motrin Ib] 600 - 800 mg PO BID PRN 03/29/22 03/29/22 History L.acidoph,Paracasei, B.lactis 1 each PO DAILY 03/29/22 03/30/22 History [Probiotic] Multivit with Calcium,Iron,Min 1 each PO DAILY 03/29/22 03/29/22 History [Women's Multivitamin] Naproxen 500 mg PO BID PRN 03/29/22 03/29/22 History Potassium Chloride [Klor-Con M15] 15 meq PO BID 03/29/22 03/30/22 History Allergies Allergy/AdvReac Type Severity Reaction Status Date / Time No Known Allergies Allergy Verified 03/30/22 12:12 Surgical - Exam Osteopathic Statement: *. No significant issues noted on an osteopathic structural exam other than those noted in the History and Physical/Consult. Vital Signs Temp Pulse Resp BP Pulse Ox 97.0 F L 46 L 16 110/60 97 03/30/22 12:24 03/30/22 12:24 03/30/22 12:24 03/30/22 12:24 03/30/22 12:24 - General well developed, well nourished, no distress - Eyes PERRL - Cardiovascular Rhythm: regular - Abdomen Abdomen: soft, non tender Assessment and Plan Assessment: screening colonoscopy Plan: screening colonoscopy
== END 2022-03-30 13:48 | disposition home or self-care (01) ==
LOC: ORWHC2ENDO 11:53
PROVIDERS: ATTEND Student in an Organized Health Care Education/Training Program
DX: Z12.11 Encounter for screening for malignant neoplasm of colon (principal); M19.90 Unspecified osteoarthritis, unspecified site; G89.29 Other chronic pain; M54.9 Dorsalgia, unspecified; M54.2 Cervicalgia; K58.9 Irritable bowel syndrome, unspecified; Z87.442 Personal history of urinary calculi; F41.9 Anxiety disorder, unspecified; F32.A Depression, unspecified; F17.210 Nicotine dependence, cigarettes, uncomplicated; Z82.49 Family history of ischemic heart disease and other diseases of the circulatory system; Z80.0 Family history of malignant neoplasm of digestive organs
CPT/HCPCS: 81025; J2704; J2001; G0121

== ENCOUNTER → 2022-10-24 | Outpatient (CLI) | payer OTHER ==
--- NOTE | 2022-10-24 17:11 | XR ---
EXAMINATION TYPE: XR KUB DATE OF EXAM: 10/24/2022 3:21 PM INDICATION: Patient age:Female; 51 years old; Reason for study: N20.0 CALCULUS OF KIDNEY; COMPARISON: None. TECHNIQUE: One radiographic view of the abdomen was obtained. FINDINGS: Calcified densities project over the kidneys bilaterally measuring up to 5 mm on the right and 4 mm on the left. The bowel gas pattern is nonspecific without dilated loops of small or large daniel wel. There is no evidence for organomegaly or pneumoperitoneum. The osseous structures are intact. Fecal material and gas are demonstrated throughout the colon and rectum. IMPRESSION: Bilateral renal calculi.
== END | disposition home or self-care (01) ==
LOC: RADXRMAIN 15:04
PROVIDERS: ATTEND Urology
DX: N20.0 Calculus of kidney (principal)
CPT/HCPCS: 74018

== ENCOUNTER → 2023-02-25 | Outpatient (CLI) | payer OTHER ==
--- NOTE | 2023-02-25 09:42 | CTL ---
EXAMINATION TYPE: CT Low Dose Lung DATE OF EXAM ORDERED: 02/25/2023 HISTORY: Long-term Tobacco use. Lung cancer screening CT DLP: 53.[address] CTDI: 1.4 mGy Automated exposure control for dose reduction was used. SCREENING VISIT: Baseline COMPARISON: None TECHNIQUE: Low dose computed tomography scan was performed through the chest at 1 mm thick sections a nd reconstructed images in multiple planes at 1 mm and [address] DIAGNOSTIC QUALITY: Satisfactory FINDINGS: LUNG NODULES: Present, detailed below: Few scattered small nodules. For reference, There is 4 x 2 mm nodule in the right middle lobe axial i mage 124 series 3. For reference there is 5 x 3 mm right middle lobe endobronchial nodule image 168 s eries 3. No greater than 5 mm pulmonary nodules. LUNGS: COPD: Severity: Mild Fibrosis: Severity: None Lymph nodes: None Other findings: None RIGHT PLEURAL SPACE: Effusion: None Calcification: None Thickening: None Pneumothorax: None LEFT PLEURAL SPACE: Effusion: None Calcification: None Thickening: None Pneumothorax: None HEART: Heart Size: Normal Coronary Calcification: Mild Pericardial Effusion: None OTHER FINDINGS: Upper abdomen: Multiple Nonobstructing small bilateral renal calculi are partially imaged and both ki dneys Bony thorax: Slight scoliotic curvature. Supraclavicular region: None Other: None IMPRESSION: A few scattered small nodules CT LUNG RAD AND CT CHEST RECOMMENDATION: Lung-Rad 2 Benign Appearance or Behavior: Continue annual sc reening with LDCT in 12 months. S Modifier (other clinically significant findings): None
--- NOTE | 2023-02-26 10:14 | MM ---
Reason for Exam: Screening (asymptomatic). Last mammogram was performed 1 year(s) and 1 month(s) ago. Patient History: Menarche at age 14. First Full-Term at age 25. Last menstrual period: 12/27/2022 Risk Values: Casandra 5 year model risk: 1.1%. NCI Lifetime model risk: 8.6%. Prior Study Comparison: 02/07/2018 Bilateral Screening Mammogram, [facility]. 01/31/2022 Bilateral Screening Mammogram, [facility]. 02/08/2022 Left Diagnostic Mammogram, [facility]. Tissue Density: The breast tissue is heterogeneously dense. This may lower the sensitivity of mammography. Findings: Analyzed By CAD. There is no suspicious group of microcalcifications or new suspicious mass in either breast. Overall Assessment: Negative, BI-RAD 1 Management: Screening Mammogram of both breasts in 1 year. . Patient should continue monthly self-breast exams. A clinical breast exam by your physician is recommended on an annual basis. This exam should not preclude additional follow-up of suspicious palpable abnormalities. Note on Casandra scores and lifetime risk: 1. A Casandra score greater than 3% is considered moderate risk. If this is the case, consider specialist referral to assess eligibility for a risk reducing agent. 2. If overall lifetime risk for the development of breast cancer is 20% or higher, the patient may qualify for future screening with alternating mammogram and breast MRI. Electronically signed and approved by: Edu Arboleda DO
== END | disposition home or self-care (01) ==
LOC: RADMAMWWP 08:19
PROVIDERS: ATTEND Internal Medicine
DX: Z12.31 Encounter for screening mammogram for malignant neoplasm of breast (principal); Z12.2 Encounter for screening for malignant neoplasm of respiratory organs; R91.8 Other nonspecific abnormal finding of lung field; F17.210 Nicotine dependence, cigarettes, uncomplicated
CPT/HCPCS: 71271; 77063; 77067

== ENCOUNTER → 2023-08-06 | Outpatient (CLI) | payer OTHER ==
--- NOTE | 2023-08-06 08:55 | XR ---
EXAMINATION TYPE: XR KUB DATE OF EXAM: 08/06/2023 COMPARISON: KUB 07/22/2023 HISTORY: Urethral calculus TECHNIQUE: Single supine KUB image of the abdomen is obtained FINDINGS: The bowel gas pattern is nonspecific without dilated loops of small or large bowel. The oss eous structures are intact. Bilateral renal calculi demonstrated again. Largest on the right measures 5 mm. Largest on the left measures 5 mm. There are approximately 7 right renal calculi and 9 left re nal calculi. Stable 3 mm calculus right pelvic phlebolith from prior exams. Fecal material and gas ar e demonstrated throughout the colon and rectum. IMPRESSION: Bilateral renal calculi redemonstrated.
== END | disposition home or self-care (01) ==
LOC: RADXRMAIN 08:28
PROVIDERS: ATTEND Urology
DX: N21.1 Calculus in urethra (principal); N20.2 Calculus of kidney with calculus of ureter
CPT/HCPCS: 74018

== ENCOUNTER 2023-12-14 13:22 | Emergency (ER) | payer OTHER ==
--- NOTE | 2023-12-14 14:01 | ED ---
Female Urogenital HPI - General Source: patient, RN notes reviewed, old records reviewed Mode of arrival: ambulatory Limitations: no limitations <Rakesh Nava - Last Filed: 12/14/23 14:00> <Ariadne Larson - Last Filed: 12/20/23 13:05> - General Chief complaint: Urogenital Stated complaint: constantly having pee - History of Present Illness Initial comments: THis is a 53 female to the ED with increase in urination with concern for increasing urination, has been on antibiotics. Sees Dr Leggett urology for kidney stones (Rakesh Nava) 53-year-old female presents to the emergency department for evaluation of urinary frequency. Patient states that this started today. She reports that she was recently on antibiotics and had improved. Patient follows with Dr. Leggett for urology. She denies recent fever, flank pain, hematuria. (Ariadne Larson) - Related Data Home Medications Medication Instructions Recorded Confirmed hydrOXYzine pamoate [Vistaril] 25 mg PO DAILY PRN 01/30/18 03/30/22 Calcium Carbonate [Calcium] 600 mg PO DAILY 03/29/22 03/30/22 Ibuprofen [Motrin Ib] 600 - 800 mg PO BID PRN 03/29/22 03/29/22 L.acidoph,Paracasei, B.lactis 1 each PO DAILY 03/29/22 03/30/22 [Probiotic] Multivit with Calcium,Iron,Min 1 each PO DAILY 03/29/22 03/29/22 [Women's Multivitamin] Naproxen 500 mg PO BID PRN 03/29/22 03/29/22 Potassium Chloride [Klor-Con M15] 15 meq PO BID 03/29/22 03/30/22 Previous Rx's Medication Instructions Recorded Cephalexin [Keflex] 500 mg PO BID #14 cap 12/14/23 Allergies Allergy/AdvReac Type Severity Reaction Status Date / Time No Known Allergies Allergy Verified 12/14/23 13:30 Review of Systems ROS Other: All systems not noted in ROS Statement are negative. <Rakesh Nava - Last Filed: 12/14/23 14:00> ROS Other: All systems not noted in ROS Statement are negative. <Ariadne Larson - Last Filed: 12/20/23 13:05> ROS Statement: Those systems with pertinent positive or pertinent negative responses have been documented in the HPI. 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 kidney stones. PAST SHIFT STACKER HISTORY: She has no history of STDs. History of Any Multi-Drug Resistant Organisms: None Reported Past Surgical History: No Surgical Hx Reported Additional Past Surgical History / Comment(s): Cystoscopic stone removal. Past Psychological History: Anxiety, Depression Smoking Status: Current every day smoker Past Alcohol Use History: None Reported Past Drug Use History: None Reported - Past Family History Mother Family Medical History: Hypertension Additional Family Medical History / Comment(s): Maternal grandfather had colon cancer. Father Family Medical History: Unable to Obtain Additional Family Medical History / Comment(s): patient adopted. <Rakesh Nava - Last Filed: 12/14/23 14:00> General Exam Limitations: no limitations General appearance: alert, in no apparent distress Head exam: Present: atraumatic, normocephalic, normal inspection Eye exam: Present: normal appearance, PERRL, EOMI. Absent: scleral icterus, conjunctival injection, periorbital swelling ENT exam: Present: normal exam, mucous membranes moist Neck exam: Present: normal inspection. Absent: tenderness, meningismus, lymphadenopathy Respiratory exam: Present: normal lung sounds bilaterally. Absent: respiratory distress, wheezes, rales, rhonchi, stridor Cardiovascular Exam: Present: regular rate, normal rhythm, normal heart sounds. Absent: systolic murmur, diastolic murmur, rubs, gallop, clicks GI/Abdominal exam: Present: soft, normal bowel sounds. Absent: distended, tenderness, guarding, rebound, rigid Extremities exam: Present: normal inspection, full ROM, normal capillary refill. Absent: tenderness, pedal edema, joint swelling, calf tenderness Back exam: Present: normal inspection Neurological exam: Present: alert, oriented X3, CN II-XII intact Psychiatric exam: Present: normal affect, normal mood Skin exam: Present: warm, dry, intact, normal color. Absent: rash <Rakesh Nava - Last Filed: 12/14/23 14:00> Limitations: no limitations General appearance: alert, in no apparent distress Head exam: Present: atraumatic, normocephalic, normal inspection Eye exam: Present: normal appearance, PERRL, EOMI. Absent: scleral icterus, conjunctival injection, periorbital swelling ENT exam: Present: normal exam, mucous membranes moist Neck exam: Present: normal inspection. Absent: tenderness, meningismus, lymphadenopathy Respiratory exam: Present: normal lung sounds bilaterally. Absent: respiratory distress, wheezes, rales, rhonchi, stridor Cardiovascular Exam: Present: regular rate, normal rhythm, normal heart sounds. Absent: systolic murmur, diastolic murmur, rubs, gallop, clicks Back exam: Absent: CVA tenderness (R), CVA tenderness (L) Neurological exam: Present: alert, oriented X3 Psychiatric exam: Present: normal affect, normal mood Skin exam: Present: warm, dry, intact, normal color. Absent: rash <Ariadne Larson - Last Filed: 12/20/23 13:05> Course <Rakesh Nava - Last Filed: 12/14/23 14:00> Vital Signs 12/14/23 12/14/23 13:28 17:47 Temperature 98.1 F 97.9 F Pulse Rate 77 76 Respiratory 20 18 Rate Blood Pressure 116/69 136/86 O2 Sat by Pulse 98 99 Oximetry - Reevaluation(s) Reevaluation #1: 12/14/23 14:[address] Nava completed (Rakesh Nava) Medical Decision Making - Lab Data Result diagrams: 12/14/23 14:52 12/14/23 14:52 <Ariadne Larson - Last Filed: 12/20/23 13:05> - Medical Decision Making Was pt. sent in by a medical professional or institution (, PA, COMMUNITY SERVICE ORGANIZATION DIRECTOR, urgent care, hospital, or [place] health care facility...) When possible be specific @ -No Did you speak to anyone other than the patient for history (EMS, parent, family, police, friend...)? What history was obtained from this source @ -No Did you review nursing and triage notes (agree or disagree)? Why? @ -I reviewed and agree with nursing and triage notes Were old charts reviewed (outside hosp., previous admission, EMS record, old EKG, old radiological studies, urgent care reports/EKG's, [place] health care facility records)? Report findings @ -No old charts were reviewed Differential Diagnosis (chest pain, altered mental status, abdominal pain women, abdominal pain men, vaginal bleeding, weakness, fever, dyspnea, syncope, headache, dizziness, GI bleed, back pain, seizure, CVA, palpatations, mental health, musculoskeletal)? @ -UTI, vaginitis, nephrolithiasis, this list is not all inclusive EKG interpreted by me (3pts min.). @ -None X-rays interpreted by me (1pt min.). @ -None done CT interpreted by me (1pt min.). @ -None done U/S interpreted by me (1pt. min.). @ -None done What testing was considered but not performed or refused? (CT, X-rays, U/S, labs)? Why? @ -None What meds were considered but not given or refused? Why? @ -None Did you discuss the management of the patient with other professionals (professionals i.e. , PA, COMMUNITY SERVICE ORGANIZATION DIRECTOR, lab, RT, psych nurse, social services counselor, rounding machine operator, teacher, facilities officer, behavioral health case manager)? Give summary @ -No Was smoking cessation discussed for >3mins.? @ -No Was critical care preformed (if so, how long)? @ -No Were there social determinants of health that impacted care today? How? (Homelessness, low income, unemployed, alcoholism, drug addiction, transportation, low edu. Level, literacy, decrease access to med. care, long term, rehab)? @ -No Was there de-escalation of care discussed even if they declined (Discuss DNR or withdrawal of care, Hospice)? DNR status @ -No What co-morbidities impacted this encounter? (DM, HTN, Smoking, COPD, CAD, Cancer, CVA, ARF, Chemo, Hep., AIDS, mental health diagnosis, sleep apnea, morbid obesity)? @ -None Was patient admitted / discharged? Hospital course, mention meds given and route, prescriptions, significant lab abnormalities, going to OR and other pertinent info. @ -Discharge. Patient presented to the emergency department for evaluation of urinary frequency. UA was obtained which shows moderate leukocyte esterase, 15 WBCs. CBC unremarkable; CMP shows BUN of 27, creatinine 1.19. Patient hydrated with 1 L normal saline; pelvic ultrasound was ordered from the waiting room and is within normal limits. Patient will be switched antibiotics and advised to follow-up with her urologist. UA will be sent for culture. Patient understanding agreeable with plan. Patient stable at time of discharge. Case discussed with Dr. Nava Undiagnosed new problem with uncertain prognosis? @ -No Drug Therapy requiring intensive monitoring for toxicity (Heparin, Nitro, Insulin, Cardizem)? @ -No Were any procedures done? @ -No Diagnosis/symptom? @ -UTI Acute, or Chronic, or Acute on Chronic? @ -acute Uncomplicated (without systemic symptoms) or Complicated (systemic symptoms)? @ -Uncomplicated Side effects of treatment? @ -No Exacerbation, Progression, or Severe Exacerbation? @ -No Poses a threat to life or bodily function? How? (Chest pain, [place], ME, pneumonia, PE, COPD, DKA, ARF, appy, cholecystitis, CVA, Diverticulitis, Homicidal, Suicidal, threat to staff... and all critical care pts) @ -No (Ariadne Larson) - Lab Data Lab Results 12/14/23 12/14/23 12/14/23 Range/Units 13:35 14:52 14:52 WBC 5.1 (3.8-10.6) k/uL RBC 4.14 (3.80-5.40) m/uL Hgb 13.1 (11.4-16.0) gm/dL Hct 38.4 (34.0-46.0) % MCV 92.9 (80.0-100.0) fL MCH 31.7 (25.0-35.0) pg MCHC 34.1 (31.0-37.0) g/dL RDW 12.8 (11.5-15.5) % Plt Count 242 (150-450) k/uL MPV 6.7 Neutrophils % 65 % Lymphocytes % 20 % Monocytes % 9 % Eosinophils % 3 % Basophils % 1 % Neutrophils # 3.3 (1.3-7.7) k/uL Lymphocytes # 1.0 (1.0-4.8) k/uL Monocytes # 0.5 (0-1.0) k/uL Eosinophils # 0.2 (0-0.7) k/uL Basophils # 0.0 (0-0.2) k/uL Sodium 138 (137-145) mmol/L Potassium 4.4 (3.5-5.1) mmol/L Chloride 105 (98-107) mmol/L Carbon Dioxide 28 (22-30) mmol/L Anion Gap 5 mmol/L BUN 27 H (7-17) mg/dL Creatinine 1.19 H (0.52-1.04) mg/dL Est GFR (CKD-EPI)AfAm 60 (>60 ml/min/1.73 sqM) Est GFR (CKD-EPI)NonAf 52 (>60 ml/min/1.73 sqM) Glucose 95 (74-99) mg/dL Calcium 9.9 (8.4-10.2) mg/dL Total Bilirubin 0.7 (0.2-1.3) mg/dL AST 25 (14-36) U/L ALT 20 (4-34) U/L Alkaline Phosphatase 55 (38-126) U/L Total Protein 7.0 (6.3-8.2) g/dL Albumin 4.5 (3.5-5.0) g/dL Amylase 84 (30-110) U/L Lipase 122 (23-300) U/L Urine Color Yellow Urine Appearance Clear (Clear) Urine pH 6.0 (5.0-8.0) Ur Specific [place] 1.023 (1.001-1.035) Urine Protein Trace H (Negative) Urine Glucose (UA) Negative (Negative) Urine Ketones Negative (Negative) Urine Blood Negative (Negative) Urine Nitrite Negative (Negative) Urine Bilirubin Negative (Negative) Urine Urobilinogen 2.0 (<2.0) mg/dL Ur Leukocyte Esterase Moderate H (Negative) Urine RBC 3 (0-5) /hpf Urine WBC 15 H (0-5) /hpf Ur Squamous Epith Cells 2 (0-4) /hpf Calcium Oxalate Crystal Rare H (None) /hpf Amorphous Sediment Rare H (None) /hpf Urine Mucus Moderate H (None) /hpf Disposition <Rakesh Nava - Last Filed: 12/14/23 14:00> Is patient prescribed a controlled substance at d/c from ED?: No <Ariadne Larson - Last Filed: 12/20/23 13:05> Clinical Impression: Urinary tract infection Disposition: HOME SELF-CARE Condition: Stable Instructions (If sedation given, give patient instructions): Urinary Tract Infection in Women (ED) Additional Instructions: Please scrap picker antibiotics and take to completion. Follow up with Dr. Leggett. Return to the emergency department for new or worsening symptoms. Prescriptions: Cephalexin [Keflex] 500 mg PO BID #14 cap Referrals: Carlos Trujillo DO [Primary Care Provider] - 1-2 days
[2023-12-14 14:32] LABS: Amorphous Sediment,Urine Rare /hpf; Appearance,Urine Clear (Clear); Bilirubin,Urine Negative (Negative); Blood,Urine Negative (Negative); Calcium Oxalate Crystals,Urine Rare /hpf; Color,Urine Yellow; Glucose,Urine (UA) Negative (Negative); Ketones,Urine Negative (Negative); Leukocyte Esterase,Urine Moderate (Negative); Mucus,Urine Moderate /hpf; Nitrite,Urine Negative (Negative); Protein,Urine Trace (Negative); RBC,Urine 3 /hpf (0-5); Specific Gravity,Urine 1.023 (1.001-1.035); Squamous Epithelial Cell,Urine 2 /hpf (0-4); WBC,Urine 15 /hpf (0-5)
[2023-12-14] MEDS: SODIUM CHLORIDE 0.9% 1,000 ML IV STA (15:01)
[2023-12-14 15:27] LABS: Basophils % (A) 1 %; Eosinophils # (A) 0.2 k/uL (0-0.7); Eosinophils % (A) 3 %; HCT 38.4 % (34.0-46.0); HGB 13.1 gm/dL (11.4-16.0); Lymphocytes % (A) 20 %; MCH 31.7 pg (25.0-35.0); MCHC 34.1 g/dL (31.0-37.0); MCV 92.9 fL (80.0-100.0); Mean Platelet Volume 6.7; Monocytes # (A) 0.5 k/uL (0-1.0); Monocytes % (A) 9 %; Neutrophils # (A) 3.3 k/uL (1.3-7.7); Neutrophils % (A) 65 %; Platelet Count 242 k/uL (150-450); RBC 4.14 m/uL (3.80-5.40); RDW 12.8 % (11.5-15.5); WBC 5.1 k/uL (3.8-10.6)
[2023-12-14 15:39] LABS: ALT 20 U/L (4-34); AST 25 U/L (14-36); African American GFR (CKD) 60 (>60 ml/min/1.73 sqM); Albumin 4.5 g/dL (3.5-5.0); Alkaline Phosphatase 55 U/L (38-126); Amylase 84 U/L (30-110); Anion Gap 5 mmol/L; Blood Urea Nitrogen 27 mg/dL (7-17); Calcium 9.9 mg/dL (8.4-10.2); Carbon Dioxide 28 mmol/L (22-30); Chloride 105 mmol/L (98-107); Glucose 95 mg/dL (74-99); Lipase 122 U/L (23-300); Non-African American GFR(CKD) 52 (>60 ml/min/1.73 sqM); Potassium 4.4 mmol/L (3.5-5.1); Sodium 138 mmol/L (137-145); Total Bilirubin 0.7 mg/dL (0.2-1.3)
--- NOTE | 2023-12-14 17:01 | US ---
EXAMINATION TYPE: US transvaginal DATE OF EXAM: 12/14/2023 COMPARISON: NONE CLINICAL INDICATION: Female, 53 years old with history of pain; Patient denies any burning or pain. Tsering cano says she has had constant urge to urinate since last Saturday TECHNIQUE: Transvaginal (TV Transvaginal sonographic images were medically necessary to better asses s the following anatomy: Ovaries Date of LMP: 1 year ago EXAM MEASUREMENTS: Uterus: 6.6x3.5x4.4 cm Endometrial Stripe: 0.3 cm Right Ovary: obscured by overlying bowel Left Ovary: obscured by overlying bowel 1. Uterus: Anteverted wnl 2. Endometrium: wnl, some calcification noted within 3. Right Ovary: Obscured by overlying bowel gas 4. Left Ovary: Obscured by overlying bowel gas 5. Bilateral Adnexa: Obscured by overlying bowel gas 6. Posterior cul-de-sac: wnl exam limited by significant amount of peristalsing bowel IMPRESSION: 1. No evidence for acute process. 2. Ovaries are not visualized due to overlapping bowel. 3. Endometrium within normal limits for thickness.
[2023-12-14 17:53] VITALS: BP 136/86; PULSE 76; RESP 18; TEMP 97.9
== END 2023-12-14 17:48 | disposition home or self-care (01) ==
LOC: EC 13:22
DX: N39.0 Urinary tract infection, site not specified (principal); F17.200 Nicotine dependence, unspecified, uncomplicated; Z86.59 Personal history of other mental and behavioral disorders
CPT/HCPCS: 36415; 76830; 80053; 81001; 82150; 83690; 85025; 87086; 96360; 99284